=== PATIENT | male | born 1970 | race Caucasian/White ===

== ENCOUNTER 2024-10-14 06:40 | Day surgery (SDC) | payer MEDICARE ==
[2024-10-14 06:23] VITALS: RESP 16
[~2024-10-14 06:40] MED LIST: Sodium Chloride 0.9% 10 ML FLUSH Syringe IJ ONE
[2024-10-14] MEDS: TETRACAINE 0.5% STERI-UNIT SOL OP ONE ×2 (06:57→07:09)
[2024-10-14] MEDS: Ak-Dilate OPHTHALMIC*** 1.065 ML, Cyclogyl 1% OPHTH SOL 1.065 ML, GATIFLOXACIN 0.5% OPH... OP ONE (06:57)
[2024-10-14] MEDS ORDERED: Zofran 4 MG/2 ML VIAL IV PRN (08:00)
[2024-10-14] MEDS ORDERED: VIGAMOX/BSS 0.15% SYR IO ONE (08:00)
[2024-10-14] MEDS ORDERED: TRIAMCINOLONE 15 MG/ML INJ INTRAOP ONE (08:00)
[2024-10-14] MEDS ORDERED: Epinephrine Preservative Free 1 MG/ML IJ ONE (08:00)
[2024-10-14] MEDS ORDERED: BETADINE 5% OPHTHALMIC 30 ML OP ONE (08:00)
[2024-10-14] MEDS ORDERED: DEXMEDETOMIDINE 80 MCG/20ML-NS IV ONE (08:14)
[2024-10-14] MEDS ORDERED: DIPRIVAN 200 MG/20 ML IV ONE (08:14)
[2024-10-14] MEDS ORDERED: SUBLIMAZE 100 MCG/2 ML ONE (08:23)
[2024-10-14 08:44] VITALS: TEMP 98.2
[2024-10-14] MEDS: ACETAZOLAMIDE 250 MG TABLET PO ONE (08:46)
[2024-10-14 08:49] VITALS: O2SAT 96
[2024-10-14 08:54] VITALS: BP 129/82; PULSE 60
== END 2024-10-14 09:05 | disposition home or self-care (01) ==
LOC: EDBD → MERGE 06:40 → SDC 06:40
PROVIDERS: ATTEND Ophthalmology
DX: H25.812 Combined forms of age-related cataract, left eye (principal); E11.9 Type 2 diabetes mellitus without complications
CPT/HCPCS: 82947; 93005; C1780; J0171; J2704; J3010; A9270-GY

== ENCOUNTER 2024-11-11 09:14 | Day surgery (SDC) | payer MEDICARE ==
[2024-11-11] MEDS ORDERED: TRIAMCINOLONE 15 MG/ML INJ INTRAOP ONE (09:30)
[2024-11-11] MEDS ORDERED: BETADINE 5% OPHTHALMIC 30 ML OP ONE (09:30)
[2024-11-11] MEDS ORDERED: Sodium Chloride 0.9% 10 ML FLUSH Syringe IJ ONE (09:30)
[2024-11-11] MEDS ORDERED: VIGAMOX/BSS 0.15% SYR IO ONE (09:30)
[2024-11-11] MEDS: TETRACAINE 0.5% STERI-UNIT SOL OP ONE ×2 (09:59→10:33)
[2024-11-11] MEDS: Ak-Dilate OPHTHALMIC*** 1.065 ML, Cyclogyl 1% OPHTH SOL 1.065 ML, GATIFLOXACIN 0.5% OPH... OP ONE (10:03)
[2024-11-11 10:23] LABS: ANION GAP 16.1 MEQ/L (5-15); Calcium 10.5 mg/dL (8.4-10.2); Creatinine 1 0.92 mg/dL (0.66-1.25); EST GLOMERULAR FILTRATION RATE 97.6 ML/MIN; Potassium 4.3 mmol/L (3.5-5.1)
[2024-11-11] MEDS ORDERED: Epinephrine Preservative Free 1 MG/ML IJ ONE (11:30)
[2024-11-11] MEDS ORDERED: Zofran 4 MG/2 ML VIAL IV PRN (11:30)
[2024-11-11] MEDS ORDERED: DIPRIVAN 200 MG/20 ML IV ONE ×2 (11:53→12:02)
[2024-11-11] MEDS ORDERED: SUBLIMAZE 100 MCG/2 ML ONE (12:01)
[2024-11-11 12:21] VITALS: TEMP 97.4
[2024-11-11] MEDS: ACETAZOLAMIDE 250 MG TABLET PO ONE (12:27)
[2024-11-11 12:32] VITALS: O2SAT 96
[2024-11-11 12:38] VITALS: BP 144/95; PULSE 62; RESP 18
== END 2024-11-11 12:45 | disposition home or self-care (01) ==
LOC: SDC 09:14
PROVIDERS: ATTEND Ophthalmology
DX: H25.811 Combined forms of age-related cataract, right eye (principal); E11.9 Type 2 diabetes mellitus without complications; I10 Essential (primary) hypertension
CPT/HCPCS: 36415; 80048; 93005; C1780; J0171; J2704; J3010; A9270-GY

== ENCOUNTER 2025-02-27 07:38 | Emergency (ER) | payer MEDICARE ==
[2025-02-27 07:51] VITALS: TEMP 98.1
--- NOTE | 2025-02-27 08:03 | ERPHSYRPT ---
- History of Present Illness Time Seen by Provider: 02/27/25 07:45 Source: patient, family Exam Limitations: no limitations Patient Subjective Stated Complaint: Pt c/o of left sided flank pain since yesterday Triage Nursing Assessment: Pt brought to the ER by his , hypertensive, rates pain as 8/10, pulses normal, did have to take 3 laxatives yesterday to have a bowel movement which is not his norm, skin n/w/d, pain with palpatation to the l eft flank that radiates to the LLQ, doesn't appear to be in any distress Physician History: This is a 54-year-old white male patient who arrives by private vehicle accompanied by his spouse with the complaint of 2 days of low back pain. Initially it was bilateral and now there is left side flank pain. He is also having difficulty urinating and has constipation which is not typical for him. Patient has chronic low back pain and states he has multiple lumbar spine fra ctures. He did not experience any recent falls or trauma. He denies chest pain. He denies shortness of breath. He has no abdominal pain. Patient has a history of hypertension, gastroesophageal reflux disease and diabetes Timing/Duration: day(s) (2) Method of Injury: other (No fall or injury) Quality: sharp, stabbing Severity of Pain-Max: moderate Severity of Pain-Current: moderate Modifying Factors: Improves With: movement Associated Symptoms: constipation, lower back pain (Left side lumbar level), No urinary incontinence, No loss of bowel control, No numbness in legs/feet Previous symptoms: same symptoms as today, no recent treatment Allergies/Adverse Reactions: Penicillins Allergy (Verified 02/27/25 07:51) empagliflozin [From Jardiance] Adverse Reaction (Verified 02/27/25 07:51) lisinopril Adverse Reaction (Verified 02/27/25 07:51) semaglutide [From Ozempic] Adverse Reaction (Verified 02/27/25 07:51) Home Medications: Atenolol/Chlorthalidone [Atenolol-Chlorthalidone 50-25] 1 each PO DAILY 10/14/24 [History] Gemfibrozil [Lopid] 600 mg PO BID 10/14/24 [History] Glimepiride 2 mg [Amaryl 2 MG] 2 mg PO DAILY 10/14/24 [History] Insulin Glargine [Lantus Insulin] 60 unit SQ DAILY 10/14/24 [History] Alvarado-3 Fatty Acids/Fish Oil [Fish Oil 1,000 mg Capsule] 1,000 mg PO BID 10/14/24 [History] Acetaminophen [Tylenol] 325 mg PO UD 11/05/24 [History] Omeprazole Magnesium [Prilosec Otc] 20 mg PO DAILY 11/11/24 [History] Travel Risk - International Travel Have you traveled outside of the country in past 3 weeks: No - Emerging Infectious Disease Are you exhibiting symptoms associated with any current EIDs: No - Review of Systems Constitutional: No Symptoms Eyes: No Symptoms Ears, Nose, & Throat: No Symptoms Respiratory: No Symptoms Cardiac: No Symptoms Abdominal/Gastrointestinal: Constipation, No Abdominal Pain, No Nausea, No Vom iting, No Diarrhea Genitourinary Symptoms: Flank Pain (Left flank pain), No Incontinence Musculoskeletal: No Symptoms Skin: No Symptoms Neurological: No Symptoms Psychological: No Symptoms Endocrine: No Symptoms Hematologic/Lymphatic: No Symptoms Immunological/Allergic: No Symptoms All Other Systems: Reviewed and Negative - Past Medical History Pertinent Past Medical History: Yes Neurological History: No Pertinent History ENT History: No Pertinent History Cardiac History: Hypertension Respiratory History: No Pertinent History Endocrine Medical History: Diabetes Type II Musculoskeletal History: No Pertinent History GI Medical History: GERD, Gallbladder Disease History: No Pertinent History Psycho-Social History: No Pertinent History Male Reproductive Disorders: No Pertinent History - Past Surgical History Past Surgical History: Yes Neuro Surgical History: No Pertinent History Cardiac: No Pertinent History Respiratory: No Pertinent History Gastrointestinal: Appendectomy, Cholecystectomy Genitourinary: No Pertinent History Musculoskeletal: No Pertinent History Male Surgical History: No Pertinent History Other Surgical History: Current smoker - Social History Smoking Status: Current every day smoker Exposure to second hand smoke: Yes Drug Use: none - Social Determinants of Health Will the patient participate in the screening: Yes Do you worry about a steady place to live?: No Do you have any problems with any of the following?: No known problems In the past 12 months,have you had to go without utilities?: No Transportation Issues: No Has anyone in your support network made you feel unsafe?: No Have you or anyone in your house had to go w/o enough food: No - Nursing Vital Signs Nursing Vital Signs: Initial Vital Signs Temperature 98.1 F 02/27/25 07:45 Pulse Rate 78 02/27/25 07:45 Blood Pressure 172/91 02/27/25 07:45 O2 Sat by Pulse Oximetry 95 02/27/25 07:45 Pain Scale Pain Intensity 2 - Physical Exam General Appearance: no apparent distress, alert, anxiety Eye Exam: PERRL/EOMI, eyes nml inspection Ears, Nose, Throat Exam: normal ENT inspection, moist mucous membranes Neck Exam: normal inspection, non-tender, supple, full range of motion Respiratory Exam: normal breath sounds, lungs clear, airway intact, No chest tenderness, No respiratory distress Cardiovascular Exam: regular rate/rhythm, normal heart sounds, normal peripheral pulses Gastrointestinal Exam: soft, normal bowel sounds, No tenderness Rectal Exam: not done Back Exam: normal inspection, decreased range of motion, muscle spasm, No CVA tenderness, No vertebral tenderness, No rash, No point tenderness Extremity Exam: normal inspection, normal range of motion, pelvis stable Neurologic Exam: alert, oriented x 3, cooperative, 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 tested, sensation nml Skin Exam: normal color, warm, dry Lymphatic Exam: No adenopathy SpO2 Interpretation: normal SpO2: 95 Ordered Tests: Active Orders 24 hr Category Date Time Status IV Insertion STAT Care 02/27/25 07:54 Active ABDOMEN AND PELVIS W/0 CONTRAS [CT] Stat Exams 02/27/25 07:55 Completed RECONSTRUCTION [CT] Stat Exams 02/27/25 07:56 Completed AMYLASE Stat Lab 02/27/25 08:05 Completed CBC W DIFF Stat Lab 02/27/25 08:05 Completed CMP Stat Lab 02/27/25 08:05 Completed LIPASE Stat Lab 02/27/25 08:05 Completed UA W/RFX UR CULTURE Stat Lab 02/27/25 08:09 Completed Medication Summary Discontinued Medications Generic Name Dose Route Start Last Admin Trade Name Freq PRN Reason Stop Dose Admin Hydromorphone HCl 1 mg 02/27/25 07:54 02/27/25 08:08 Hydromorphone 1 Mg/1ml Inj IV 02/27/25 07:55 1 mg STAT ONE Administration Hydromorphone HCl Confirm 02/27/25 08:07 Hydromorphone 1 Mg/1ml Inj Administered 02/27/25 08:08 Dose 1 mg .ROUTE .STK-MED ONE Ondansetron HCl 4 mg 02/27/25 07:54 02/27/25 08:08 Ondansetron Hcl 4 Mg/2 Ml Vial IV 02/27/25 07:55 4 mg STAT ONE Administration Ondansetron HCl Confirm 02/27/25 08:06 Ondansetron Hcl 4 Mg/2 Ml Vial Administered 02/27/25 08:07 Dose 4 mg .ROUTE .STK-MED ONE Lab/Rad Data: Laboratory Result Diagrams 02/27/25 08:05 02/27/25 08:05 Laboratory Results 02/27/25 02/27/25 02/27/25 Range/Units 08:09 08:05 08:05 WBC 12.9 H (4.23-9.07) x10^3/uL RBC 4.85 (4.63-6.08) x10^6/uL Hgb 14.5 (13.7-17.5) g/dL Hct 41.7 (40.1-51.0) % MCV 86.0 (79.0-92.2) fL MCH 29.9 (25.7-32.2) pg MCHC 34.8 (32.3-36.5) g/dL RDW 12.2 (11.6-14.4) % Plt Count 346 H (163-337) x10^3/uL MPV 9.5 (9.4-12.4) fL Gran % 71.4 H (34.0-67.9) % Immature Gran % (Auto) 0.5 H (0.001-0.429) % Nucleat RBC Rel Count 0.0 (0.00-0.2) % Eos # (Auto) 0.84 H (0.04-0.54) x10^3/uL Immature Gran # (Auto) 0.06 H (0.001-0.031) x10^3u/L Absolute Lymphs (auto) 1.62 (1.32-3.57) x10^3/uL Absolute Monos (auto) 1.08 H (0.30-0.82) x10^3/uL Absolute Nucleated RBC 0.00 (0.00-0.012) x10^3u/L Lymphocytes % 12.5 L (21.8-53.1) % Monocytes % 8.3 (5.3-12.2) % Eosinophils % 6.5 (0.8-7.0) % Basophils % 0.8 (0.2-1.2) % Absolute Granulocytes 9.24 H (1.78-5.38) x10^3/uL Basophils # 0.10 H (0.01-0.08) x10^3/uL Sodium 137 (135-145) mmol/L Potassium 3.7 (3.5-5.1) mmol/L Chloride 101 (98-107) mmol/L Carbon Dioxide 23 (22-30) mmol/L Anion Gap 16.5 H (5-15) MEQ/L BUN 19 (9-20) mg/dL Creatinine 0.83 (0.66-1.25) mg/dL Estimated GFR 102.7 ML/MIN Glucose 179 H (74-106) mg/dL Calcium 10.1 (8.4-10.2) mg/dL Total Bilirubin 0.60 (0.2-1.3) mg/dL AST 25 (17-59) U/L ALT 17 (0-50) U/L Alkaline Phosphatase 105 (38-126) U/L Serum Total Protein 6.6 (6.3-8.2) g/dL Albumin 4.0 (3.5-5.0) g/dL Amylase 50 (30-110) U/L Lipase 35 (23-300) U/L Urine Color Yellow (Yellow) Urine Appearance Clear (Clear) Urine pH 6.0 (4.6-8.0) Ur Specific Hulen 1.015 (1.005-1.030) Urine Protein >=1000 A (Negative) Urine Glucose (UA) Negative (Negative) mg/dL Urine Ketones Negative (Negative) Urine Blood Negative (Negative) Urine Nitrite Negative (Negative) Urine Bilirubin Negative (Negative) Urine Urobilinogen 0.2 (0.2) mg/dL Ur Leukocyte Esterase Negative (Negative) U Hyaline Cast (Auto) NONE SEEN (0-2) /LPF Urine Microscopic RBC 0-2 (0-5) /HPF Urine Microscopic WBC 0-2 (0-5) /HPF Ur Epithelial Cells None Seen (None Seen) /HPF Urine Bacteria None Seen (None Seen) /HPF Urine Culture Reflexed NO (NO) - Progress Progress: improved, pain not gone completely Progress Note: 02/27/25 08:01 My medical decision making and the assignment of moderate complexity to this patient's medical issue today is based on review of the patient's past medical history, review of the patient's medication list, review of the patient's drug allergy list, history present illness and physical findings on examination. The workup of this patient includes placement of intravenous line, CBC, CMP, amylase, lipase, CT scan of the abdomen pelvis, reconstruction of the lumbar spine, urinalysis. Differential diagnosis includes but is not limited to acute on chronic lumbar spine fractures, pyelonephritis, ureterolithiasis, pancreatitis 02/27/25 09:53 I interpreted the patient's laboratory data results. Based on the laboratory data results, there is a leukocytosis with a left shift. This could be viral in nature. Patient does not have evidence of a urinary tract infection. The following CT scans were performed without contrast and interpreted by the radiologist: CT scan of the abdomen pelvis shows multiple indeterminate bilateral noncalcified lung micronodules. Cannot exclude metastasis. Enlarged retroperitoneal lymphadenopathy. Primary versus secondary metastatic malignancy. Smaller scattered mesenteric lymph nodes with stranding. ? Mesenteric adenitis. CT reconstruction lumbar spine shows osteopenia with multilevel thoracolumbar degenerative spondylosis. Greatest at L3-L4 junction. No acute compression fracture or subluxation. I reviewed the results of the above radiographic and laboratory studies with the patient and spouse. They are to follow-up with his primary care provider today to make arrangements for an outpatient appointment. Counseled pt/family regarding: lab results, diagnosis, rad results Medical Desision Making - Independent Historian Additional History obtained from: Spouse - Diagnostic Testing Diagnostic test were ordered, analyzed, and reviewed by me: Yes Radiological Interpretation: Reviewed by me, Teleradiologist Report - Risk of complications The pt has a mod risk of morbidity or mortality based on: Need for prescription drug management - Departure Departure Disposition: Home Clinical Impression: Back pain, Mesenteric adenitis, Lung nodule, multiple, Spondylosis of thoracolumbar spine Condition: Stable Critical Care Time: No Referrals: TATY DILL MD [Primary Care Provider] - Follow up/PCP as directed Additional Instructions: Take your medications as prescribed. Call your primary care provider today, 02/27/2025, to make arrangements for follow-up appointment to be seen in the next 3 to 5 days. Prescriptions: Oxycodone HCl/Acetaminophen [Percocet 5-325 mg Tablet] 1 each PO Q12H PRN PRN #6 tablet MDD 2 PRN Reason: Moderate To Severe Pain
[2025-02-27 08:05] LABS: Absolute Neutrophil Ct (ANC) 9.24 x10^3/uL (1.78-5.38); BASOPHIL % 0.8 % (0.2-1.2); Eosinophil % 6.5 % (0.8-7.0); Eosinophil (Absolute #) 0.84 x10^3/uL (0.04-0.54); Hematocrit 41.7 % (40.1-51.0); Hemoglobin 14.5 g/dL (13.7-17.5); IMMATURE GRAN # 0.06 x10^3u/L (0.001-0.031); IMMATURE GRAN % 0.5 % (0.001-0.429); Lymphocyte (Absolute #) 1.62 x10^3/uL (1.32-3.57); Lymphocytes % 12.5 % (21.8-53.1); Mean Corpuscular Hemoglobin 29.9 pg (25.7-32.2); Mean Corpuscular Hgb Concent. 34.8 g/dL (32.3-36.5); Mean Platelet Volume 9.5 fL (9.4-12.4); Monocyte (Absolute #) 1.08 x10^3/uL (0.30-0.82); Monocytes % 8.3 % (5.3-12.2); Neutrophil % 71.4 % (34.0-67.9); Platelet Count 346 x10^3/uL (163-337); Red Blood Count 4.85 x10^6/uL (4.63-6.08); Red Cell Distribution Width 12.2 % (11.6-14.4); White Blood Count 12.9 x10^3/uL (4.23-9.07)
[2025-02-27] MEDS ORDERED: Zofran 4 MG/2 ML VIAL ONE (08:06)
[2025-02-27] MEDS ORDERED: Hydromorphone 1 mg/ml Injection ONE (08:07)
[2025-02-27] MEDS: Zofran 4 MG/2 ML VIAL IV ONE (08:08)
[2025-02-27] MEDS: Hydromorphone 1 mg/ml Injection IV ONE (08:08)
[2025-02-27 08:17] LABS: Appearance Clear (Clear); Bacteria None Seen /HPF (None Seen); Bilirubin Negative (Negative); Blood Negative (Negative); Epithelial Cells None Seen /HPF (None Seen); Glucose, Urine Negative (Negative); Hyaline Casts NONE SEEN /LPF (0-2); Ketones Negative (Negative); Leukocyte Esterase Negative (Negative); Nitrite Negative (Negative); Protein,Urine Dip >=1000 (Negative); RBC 0-2 /HPF (0-5); Specific Gravity 1.015 (1.005-1.030); Urobilinogen 0.2 mg/dL (0.2); WBC 0-2 /HPF (0-5)
[2025-02-27 08:23] LABS: ANION GAP 16.5 MEQ/L (5-15); BILIRUBIN,TOTAL 0.6 mg/dL (0.2-1.3); Calcium 10.1 mg/dL (8.4-10.2); Creatinine 1 0.83 mg/dL (0.66-1.25); EST GLOMERULAR FILTRATION RATE 102.7 ML/MIN; Potassium 3.7 mmol/L (3.5-5.1); Total Protein 6.6 g/dL (6.3-8.2)
[2025-02-27 08:43] VITALS: PULSE 68; RESP 18
[2025-02-27 09:19] VITALS: BP 140/80
--- NOTE | 2025-02-27 09:48 | XRAY ---
Indication: Left flank/low back pain 2 days following lifting injury. Multiple contiguous images obtained through abdomen and pelvis without contrast. Comparison: None Lung bases demonstrate mild pulmonary emphysema. Multiple tiny indeterminant bilateral noncalcified nodules, largest posterior right lower lobe measuring 5 mm. No infiltrate or effusion. Heart not enlarged. Stomach distended with fluid and medication/pill presumed from recent ingestion. Noncontrasted stomach and bowel loops appear nonobstructed. Appendectomy and cholecystectomy reported. No free fluid/air. Multiple enlarged retroperitoneal lymph nodes with minimal stranding, largest inferior to left renal vessels measuring at least 2.8 x 2.4 cm. Additional smaller centimeter and subcentimeter mid mesenteric nodes also with stranding. Findings may represent mesenteric adenitis. Primary or metastatic malignancy not completely excluded. Remaining liver, pancreas, spleen, adrenal glands, kidneys, ureters, and bladder are unremarkable for noncontrast exam. Mild scattered aortoiliac calcifications without AAA. Osseous structures intact with osteopenia and mild/moderate degenerative changes throughout including thoracolumbar spine. Greatest at L3-L4 level where there is spinal canal and bilateral foraminal stenosis compounded by bilateral degenerative facet hypertrophy. Incidental L4-L5 degenerative vacuum disc phenomena. Impression: 1. Multiple tiny indeterminant bilateral noncalcified lung micronodules. Given multiplicity and bilaterality, I cannot completely exclude metastasis. 2. Enlarged retroperitoneal lymphadenopathy. Rule out primary versus metastatic malignancy. 3. Smaller scattered mesenteric nodes with stranding, probable mesenteric adenitis. 4. Osteopenia and multilevel thoracolumbar degenerative spondylosis. Greatest extent at L3-L4 level. Outpatient MRI may yield further information.
--- NOTE | 2025-02-27 09:50 | XRAY ---
Indication: Left flank/low back pain 2 days following lifting injury. Sagittal, coronal, and axial reformatted images lumbar spine obtained using raw data from same day CT abdomen/pelvis exam. Comparison: None Osseous structures demineralized. There is mild/moderate multilevel thoracolumbar degenerative spondylosis. Greatest extent at L3-L4 level where there is spinal canal and bilateral foraminal stenosis compounded by bilateral degenerative facet hypertrophy. Incidental L4-L5 degenerative vacuum disc phenomena. No acute fracture or suspicious bone lesions. Sagittal and coronal reformatted images demonstrates normal lumbar alignment with minimal L3-L4 disc space narrowing. No acute compression fracture or subluxation. CT abdomen/pelvis report separately. Impression: Osteopenia and multilevel thoracolumbar degenerative spondylosis. Greatest extent at L3-L4 level. Outpatient MRI may yield further information.
[2025-02-27 10:00] VITALS: O2SAT 95
== END 2025-02-27 10:17 | disposition home or self-care (01) ==
LOC: ED 07:38
DX: M47.815 Spondylosis without myelopathy or radiculopathy, thoracolumbar region (principal); I88.0 Nonspecific mesenteric lymphadenitis; R91.8 Other nonspecific abnormal finding of lung field; M54.50 Low back pain, unspecified; R39.198 Other difficulties with micturition; I10 Essential (primary) hypertension; E11.9 Type 2 diabetes mellitus without complications; Z79.84 Long term (current) use of oral hypoglycemic drugs; Z79.4 Long term (current) use of insulin; Z79.891 Long term (current) use of opiate analgesic; Z79.899 Other long term (current) drug therapy; Z72.0 Tobacco use
CPT/HCPCS: 36415; 74176; 76376; 80053; 81001; 82150; 83690; 85025; 96374; 96375; 99284; J1171; J2405